=== PATIENT | female | born 1975 | race Caucasian/White ===

== ENCOUNTER 2017-09-23 21:52 | Emergency (ER) | payer SELFPAY ==
[2017-09-23 23:10] VITALS: BP 162/89; PULSE 73; TEMP 98.5; BMI 33.6
== END 2017-09-24 01:03 | disposition left against medical advice (07) ==
LOC: JER 21:52
DX: Z53.21 Procedure and treatment not carried out due to patient leaving prior to being seen by health care provider (principal)
CPT/HCPCS: 99281-25